=== PATIENT | male | born 1945 | race Caucasian/White ===

== ENCOUNTER 2018-10-30 06:48 | Day surgery (SDC) | payer MEDICARE, BC ==
[~2018-10-30] VITALS: Ht 185.4 cm; Wt 111.4 kg
[2018-10-30] VITALS (13 sets, daily range): BP systolic 130–152; BP diastolic 63–92
[2018-10-30] MEDS ORDERED: normal saline 1000ml 1,000 ML IV PRN (07:20)
[2018-10-30] MEDS ORDERED: CELE-85 PO (07:26)
[2018-10-30] MEDS ORDERED: ATOR20TA PO (07:26)
[2018-10-30] MEDS ORDERED: METF-436 PO (07:26)
[2018-10-30] MEDS ORDERED: GABA-530 PO (07:26)
[2018-10-30] MEDS ORDERED: LOSA25TA96 PO (07:26)
[2018-10-30] MEDS ORDERED: GLIP10TA11 PO (07:26)
[2018-10-30] MEDS ORDERED: EMPA25TA PO (07:26)
[2018-10-30] MEDS ORDERED: PER10325T PO (07:26)
[2018-10-30 07:40] LABS: BASOPHILS % (AUTO) 0.4 % (0-1); EOSINOPHILS # (AUTO) 0.1 X10'3 (0-0.9); EOSINOPHILS % (AUTO) 1.5 % (0-6); HEMATOCRIT 49.8 % (42.0-52.0); HEMOGLOBIN 17.1 g/dl (14.0-17.9); LYMPHOCYTES # (AUTO) 0.5 X10'3 (1.1-4.8); LYMPHOCYTES % (AUTO) 15.1 % (21-51); MEAN CORPUSCULAR HEMOGLOBIN 31.4 PG (27.0-31.0); MEAN CORPUSCULAR HGB CONC 34.3 g/dL (33.0-36.5); MEAN CORPUSCULAR VOLUME 91.5 FL (78-98); MEAN PLATELET VOLUME 7.7 FL (7.4-10.4); MONOCYTES # (AUTO) 0.3 X10'3 (0-0.9); MONOCYTES % (AUTO) 7.3 % (2-12); NEUTROPHILS # (AUTO) 2.6 X10'3 (1.8-7.7); NEUTROPHILS % (AUTO) 75.7 % (42-75); PLATELET COUNT 132 X10'3 (140-440); RED BLOOD COUNT 5.44 X10'6 (4.70-6.10); WHITE BLOOD COUNT 3.5 X10'3 (4.5-11.0)
[2018-10-30] MEDS ORDERED: fentaNYL/PF 50MCG/1 ML 2ML syringe IV PRN (08:20)
[2018-10-30] MEDS ORDERED: midazolam 2 mg/2 ml injection IV PRN (08:20)
[2018-10-30] MEDS ORDERED: LIDOcaine 1%/PF 5ML 10 MG/ML VIAL SQ ONE (08:20)
[2018-10-30] MEDS ORDERED: midazolam 2 mg/2 ml injection ONE (08:33)
[2018-10-30] MEDS ORDERED: fentaNYL/PF 50MCG/1 ML 2ML syringe ONE (08:34)
[2018-10-30] MEDS ORDERED: LIDOcaine/PRILOcaine 5gm cream TP ONE (08:49)
[2018-10-30 09:01] LABS: ALBUMIN 4.2 G/DL (3.4-5.0); ANION GAP 9 (8-16); BLOOD UREA NITROGEN 18 MG/DL (7-18); BUN/CREATININE RATIO 18.4 (5.4-32.0); CALCIUM 9.9 MG/DL (8.5-10.1); CHLORIDE 105 MMOL/L (99-107); CREATININE 0.98 MG/DL (0.60-1.10); GLUCOSE 81 MG/DL (70-104); POTASSIUM 3.7 MMOL/L (3.5-5.1); SODIUM 141 MMOL/L (135-145); TOTAL CARBON DIOXIDE 26.7 MMOL/L (24-32); eGFR 75 ML/MIN
[2018-10-30] MEDS ORDERED: gelatin sponge, absorbable (Gelfoam 12-7MM) sponge TP ONE (09:10)
[2018-10-30] MEDS ORDERED: HYDROcodone/acetaminophen 5mg/325mg tablet PO PRN ×2 (09:25)
== END 2018-10-30 10:30 | disposition home or self-care (01) ==
LOC: SSTAY O 06:48
PROVIDERS: ATTEND Radiology Vascular & Interventional Radiology
DX: C90.00 Multiple myeloma not having achieved remission (principal); E11.9 Type 2 diabetes mellitus without complications; I10 Essential (primary) hypertension; Z90.49 Acquired absence of other specified parts of digestive tract; Z98.890 Other specified postprocedural states
CPT/HCPCS: 36415; 49180; 77012; 80048; 82948; 85025; 85610; 88341; 88342; 99152; 99153; J2250; J3010; J7030; 88305

== ENCOUNTER 2019-02-17 10:40 | Outpatient (CLI) | payer MEDICARE, BC ==
[~2019-02-17 10:40] MED LIST: ATOR20TA PO; CELE-85 PO; EMPA25TA PO; GABA-530 PO; GLIP10TA11 PO; LOSA25TA96 PO; METF-436 PO; PER10325T PO
== END 2019-02-17 23:59 | disposition home or self-care (01) ==
LOC: 64 CT 10:40
PROVIDERS: ATTEND Orthopaedic Surgery
DX: M24.7 Protrusio acetabuli (principal); M84.454A Pathological fracture, pelvis, initial encounter for fracture; M16.0 Bilateral primary osteoarthritis of hip; K57.30 Diverticulosis of large intestine without perforation or abscess without bleeding; I10 Essential (primary) hypertension; E11.9 Type 2 diabetes mellitus without complications; M85.88 Other specified disorders of bone density and structure, other site; Z87.81 Personal history of (healed) traumatic fracture
CPT/HCPCS: 72192

== ENCOUNTER 2019-02-28 10:27 | Day surgery (SDC) | payer MEDICARE, BC ==
[2019-02-25 12:19] LABS: EOSINOPHILS # (AUTO) 0.1 X10'3 (0-0.9); EOSINOPHILS % (AUTO) 5.7 % (0-6); HEMATOCRIT 46.6 % (42.0-52.0); HEMOGLOBIN 15.5 g/dl (14.0-17.9); LYMPHOCYTES # (AUTO) 0.3 X10'3 (1.1-4.8); LYMPHOCYTES % (AUTO) 9.9 % (21-51); MEAN CORPUSCULAR HGB CONC 33.3 g/dL (33.0-36.5); MEAN PLATELET VOLUME 8.5 FL (7.4-10.4); MONOCYTES # (AUTO) 0.4 X10'3 (0-0.9); MONOCYTES % (AUTO) 14.2 % (2-12); NEUTROPHILS # (AUTO) 1.8 X10'3 (1.8-7.7); NEUTROPHILS % (AUTO) 69.2 % (42-75); PLATELET COUNT 89 X10'3 (140-440); RED BLOOD COUNT 5.01 X10'6 (4.70-6.10); RED CELL DISTRIBUTION WIDTH 15.8 % (11.5-14.5); WHITE BLOOD COUNT 2.6 X10'3 (4.5-11.0)
[2019-02-25 12:28] LABS: PARTIAL THROMBOPLASTIN TIME 24 SECONDS (22-32)
[2019-02-25 12:39] LABS: ALANINE AMINOTRANSFERASE 36 U/L (12-78); ALBUMIN 3.5 G/DL (3.4-5.0); ALBUMIN/GLOBULIN RATIO 1.1 (1.1-1.5); ALKALINE PHOSPHATASE 72 IU/L (46-116); ANION GAP 13 (8-16); ASPARTATE AMINO TRANSFERASE 16 U/L (10-37); BILIRUBIN,TOTAL 0.4 MG/DL (0.1-1.0); BLOOD UREA NITROGEN 16 MG/DL (7-18); BUN/CREATININE RATIO 14.5 (5.4-32.0); CALCIUM 8.5 MG/DL (8.5-10.1); CHLORIDE 110 MMOL/L (99-107); GLUCOSE 87 MG/DL (70-104); POTASSIUM 3.6 MMOL/L (3.5-5.1); SODIUM 144 MMOL/L (135-145); TOTAL CARBON DIOXIDE 21.2 MMOL/L (24-32); TOTAL PROTEIN 6.6 G/DL (6.4-8.2); eGFR 66 ML/MIN
[2019-02-25 12:54] LABS: PLATELET ESTIMATE DECREASED; TOTAL CELLS COUNTED 100
[~2019-02-28] VITALS: Ht 185.4 cm; Wt 115.6 kg
[2019-02-28] VITALS (11 sets, daily range): BP systolic 102–126; BP diastolic 48–73
[2019-02-28] MEDS ORDERED: diphenhydrAMINE 25mg capsule PO PRN (10:45)
[2019-02-28] MEDS ORDERED: nitroGLYCERIN 0.4mg SUBLingual tab SL PRN (10:45)
[2019-02-28] MEDS ORDERED: LORazepam 0.5 MG tablet PO PRN (10:45)
[2019-02-28] MEDS ORDERED: normal saline 1,000 ML IV SCH (10:45)
[2019-02-28] MEDS ORDERED: dextrose ORAL solution 15 GM/59 ML bottle PO PRN ×2 (10:50)
[2019-02-28] MEDS ORDERED: dextrose 50%-water 50ml dispensing syringe IV PRN ×2 (10:50)
[2019-02-28] MEDS ORDERED: glucagon, human recombinant 1mg kit SUBCUT PRN (10:50)
[2019-02-28] MEDS ORDERED: insulin Lispro (HumaLOG) vial - multi-dose SQ SCH (10:50)
[2019-02-28] MEDS ORDERED: LIDOcaine 1% (10mg/ml)w/preservative injection 20ml MDV ONE (11:59)
[2019-02-28] MEDS ORDERED: midazolam 2 mg/2 ml injection ONE (11:59)
[2019-02-28] MEDS ORDERED: fentaNYL/PF 50MCG/1 ML 2ML syringe ONE (11:59)
[2019-02-28] MEDS ORDERED: iohexol 350 MG/ML 50ML vial IV ONE (12:00)
[2019-02-28] MEDS ORDERED: iohexol 350MG/ML 100ml bottle IV ONE (12:00)
[2019-02-28] MEDS ORDERED: heparin 1,000 UNITS/NS 500ml 500 ML ONE (12:00)
[2019-02-28] MEDS ORDERED: VENL-190 PO (12:17)
[2019-02-28] MEDS ORDERED: DEC4T PO (12:17)
[2019-02-28] MEDS ORDERED: ACYC-202 PO (12:17)
[2019-02-28] MEDS ORDERED: CHOL500050 PO (12:17)
[2019-02-28] MEDS ORDERED: ONDA4TAB12 PO (12:17)
[2019-02-28] MEDS ORDERED: IXAZ3CAP (12:17)
[2019-02-28] MEDS ORDERED: PROC10TA10 PO (12:17)
[2019-02-28] MEDS ORDERED: LENA15CA PO (12:17)
[2019-02-28] MEDS ORDERED: ALLO100T PO (12:17)
[2019-02-28] MEDS ORDERED: HYDROcodone/acetaminophen 10/325mg tab PO PRN (13:45)
[2019-02-28] MEDS ORDERED: ondansetron/PF 4mg/2ml inj IV PRN (13:45)
[2019-02-28] MEDS ORDERED: OXAZEpam 15mg capsule PO PRN (13:45)
[2019-02-28] MEDS ORDERED: proCHLORperazine 10 MG/2 ml inj IV PRN (13:45)
[2019-02-28] MEDS ORDERED: HYDROcodone/acetaminophen 5mg/325mg tablet PO PRN (13:45)
[2019-02-28] MEDS ORDERED: insulin glargine (Lantus) pen - multi-dose SQ SCH (21:00)
== END 2019-02-28 19:00 | disposition home or self-care (01) ==
LOC: SSTAY O 10:27
PROVIDERS: ATTEND Internal Medicine Cardiovascular Disease
DX: R94.39 Abnormal result of other cardiovascular function study (principal); E11.9 Type 2 diabetes mellitus without complications; I25.10 Atherosclerotic heart disease of native coronary artery without angina pectoris; I10 Essential (primary) hypertension; E78.5 Hyperlipidemia, unspecified; Z96.649 Presence of unspecified artificial hip joint; Z79.899 Other long term (current) drug therapy; Z79.01 Long term (current) use of anticoagulants
CPT/HCPCS: 36415; 71046; 80053; 82948; 85025; 85610; 85730; 93005; 93458; 99152; C1769; J1644; J2001; J2250; J3010; J7030; Q0163; Q9967; 99153; A4620; A6258; C1760; J1815

== ENCOUNTER 2022-05-15 10:51 | Day surgery (SDC) | payer MEDICARE, BC ==
[2022-05-15] VITALS (10 sets, daily range): BP systolic 122–161; BP diastolic 62–84
[~2022-05-15] VITALS: Ht 185.4 cm; Wt 107.5 kg
[~2022-05-15 10:51] MED LIST changes: +ACYC-129 PO; +ALLO100T PO; +CHOL500050 PO; +DEC4T PO; +IXAZ3CAP3; +LENA15CA PO; +ONDA4TAB12 PO; +PROC10TA10 PO; +VENL-190 PO
[2022-05-15] MEDS ORDERED: normal saline 1000ml 1,000 ML IV SCH (11:15)
[2022-05-15] MEDS ORDERED: ASPI81TA52 PO (11:36)
[2022-05-15] MEDS ORDERED: OMEP20CA15 PO (11:36)
[2022-05-15] MEDS ORDERED: POTA-192 PO (11:36)
[2022-05-15] MEDS ORDERED: INSU100I45 SQ (11:36)
[2022-05-15] MEDS ORDERED: QUELT PO (11:36)
[2022-05-15] MEDS ORDERED: gelatin sponge, absorbable (Gelfoam 12-7MM) sponge TP ONE (11:56)
[2022-05-15] MEDS ORDERED: LIDOcaine 1% 30ml preserv. free vial SQ STA (12:14)
[2022-05-15 12:24] LABS: BASOPHILS % (AUTO) 1.2 % (0-1); EOSINOPHILS % (AUTO) 0.7 % (0-6); HEMATOCRIT 33.2 % (42.0-52.0); LYMPHOCYTES % (AUTO) 4.3 % (21-51); MEAN CORPUSCULAR HEMOGLOBIN 30.5 PG (27.0-31.0); MEAN CORPUSCULAR HGB CONC 33.1 g/dL (33.0-36.5); MEAN CORPUSCULAR VOLUME 92.3 FL (78-98); MEAN PLATELET VOLUME 7.3 FL (7.4-10.4); MONOCYTES # (AUTO) 0.2 X10'3 (0-0.9); MONOCYTES % (AUTO) 19.4 % (2-12); NEUTROPHILS # (AUTO) 0.8 X10'3 (1.8-7.7); NEUTROPHILS % (AUTO) 74.4 % (42-75); PLATELET COUNT 70 X10'3 (140-440); RED CELL DISTRIBUTION WIDTH 15.6 % (11.5-14.5); WHITE BLOOD COUNT 1.1 X10'3 (4.5-11.0)
[2022-05-15 12:42] LABS: CHLORIDE 107 MMOL/L (99-107); POTASSIUM 3.1 MMOL/L (3.5-5.1); SODIUM 143 MMOL/L (135-145)
--- NOTE | 2022-05-15 13:00 | NUR ---
Dr. Sorto at bedside to perform ultrasound guided biospy. Unable to view the mass good enough with the US. Patient will go to [facility] to have CT guided biopsy.
[2022-05-15 13:22] LABS: LARGE PLATELETS FEW; NUCLEATED RED BLOOD CELLS 2 /100WBC (0-0); PLATELET ESTIMATE DECREASED; TOTAL CELLS COUNTED 100
[2022-05-15] MEDS ORDERED: midazolam 1 mg/ML 2ml injection ONE (13:22)
[2022-05-15] MEDS ORDERED: fentaNYL/PF 50MCG/1 ML 2ML syringe ONE (13:22)
[2022-05-15 13:24] LABS: ANION GAP 10 (8-16); BLOOD UREA NITROGEN 11 MG/DL (7-18); BUN/CREATININE RATIO 10.4 (5.4-32.0); CALCIUM 8.9 MG/DL (8.5-10.1); CREATININE 1.06 MG/DL (0.60-1.10); GLUCOSE 79 MG/DL (70-104); TOTAL CARBON DIOXIDE 26.3 MMOL/L (24-32); eGFR 68 ML/MIN
[2022-05-15 13:25] LABS: ALBUMIN 2.8 G/DL (3.4-5.0)
[2022-05-15] MEDS ORDERED: HYDROcodone/acetaminophen 5mg/325mg tablet PO PRN ×2 (14:10)
== END 2022-05-15 16:00 | disposition home or self-care (01) ==
LOC: SSTAY O 10:51
PROVIDERS: ATTEND Radiology Vascular & Interventional Radiology
DX: K76.0 Fatty (change of) liver, not elsewhere classified (principal); C90.00 Multiple myeloma not having achieved remission; Z79.899 Other long term (current) drug therapy
CPT/HCPCS: 36415; 47000; 77012; 80048; 85025; 85610; 99152; 99153; J2250; J3010; J7030; 85007